=== PATIENT | female | born 1945 ===

== ENCOUNTER 2020-08-28 12:32 | Inpatient (IN) | payer OTHER ==
[~2020-08-28] VITALS: Ht 198.1 cm; Wt 5.0 kg
[2020-08-28] MEDS ORDERED: ELIQUIS5 MG PO (12:41)
[2020-08-28] MEDS ORDERED: COZAAR50 MG PO (12:41)
[2020-08-28] MEDS ORDERED: ZANAFLEX4 M1 PO (12:42)
[2020-08-28] MEDS ORDERED: GRALISE600 MG PO (12:42)
[2020-08-28] MEDS ORDERED: NORVASC5 MG PO (12:42)
[2020-08-28] MEDS ORDERED: OCREVUS300 MG/10 IV (12:43)
[2020-08-28] MEDS ORDERED: SPIRIVA RESPIMAT4 G1 (12:43)
[2020-08-28] MEDS ORDERED: NEURONTIN300 MG (12:43)
== END 2020-09-03 09:33 | disposition home health service (06) | DRG 812 ==
LOC: ER 12:32 → MEDI 20:15 → SEC-K 20:15 → MEDI 21:17 → MEDJ 08-29 14:29
PROVIDERS: ADMIT Internal Medicine; ATTEND Internal Medicine
PROC: 8E0ZXY6 Isolation (ICD-10-PCS; principal; 2020-08-29)
PROC: 30233N1 Transfusion of Nonautologous Red Blood Cells into Peripheral Vein, Percutaneous Approach (ICD-10-PCS; 2020-08-29)
DX: D64.89 Other specified anemias (principal); N17.8 Other acute kidney failure; N13.39 Other hydronephrosis; I12.9 Hypertensive chronic kidney disease with stage 1 through stage 4 chronic kidney disease, or unspecified chronic kidney disease; G35 Multiple sclerosis; N18.32 Chronic kidney disease, stage 3b; Z74.01 Bed confinement status; R33.8 Other retention of urine; Z20.822 Contact with and (suspected) exposure to COVID-19

== ENCOUNTER 2022-02-08 22:39 | Inpatient (IN) | payer OTHER ==
[~2022-02-08] VITALS: Ht 152.4 cm; Wt 77.1 kg
[~2022-02-08 22:39] MED LIST: COZAAR50 MG PO; ELIQUIS5 MG PO; GRALISE600 MG PO; NEURONTIN300 MG; NORVASC5 MG PO; OCREVUS300 MG/10 IV; SPIRIVA RESPIMAT4 G1; ZANAFLEX4 M1 PO
[2022-02-10] MEDS ORDERED: FAMOTIDINE20 MG (10:20)
== END 2022-02-13 17:57 | disposition home or self-care (01) | DRG 689 ==
LOC: ER 22:39 → MEDJ 02-09 12:55 → SURH 02-09 12:55 → SEC-K 02-09 14:15 → SURH 02-09 14:19 → MEDI 02-11 11:14
PROVIDERS: ADMIT Internal Medicine; ATTEND Internal Medicine
DX: N39.0 Urinary tract infection, site not specified (principal); A41.51 Sepsis due to Escherichia coli [E. coli]; N17.9 Acute kidney failure, unspecified; B96.29 Other Escherichia coli [E. coli] as the cause of diseases classified elsewhere; G35 Multiple sclerosis; I11.9 Hypertensive heart disease without heart failure; Z74.01 Bed confinement status; Z96.0 Presence of urogenital implants

== ENCOUNTER 2024-09-17 16:10 | Inpatient (IN) | payer OTHER ==
[~2024-09-17] VITALS: Ht 152.4 cm; Wt 108.9 kg
[~2024-09-17 16:10] MED LIST changes: +FAMOTIDINE20 MG
--- NOTE | 2024-09-17 16:21 | NUR ---
SE RECIBE PTE ALERTA Y ORIENTADA X2 EN AMBULANCIA, PTE REFIERE VENIR POR DESORIENTACION Y EPISODIOS DE DEBILIDAD DESDE HACE VARIOS V[place]SQUEZ. PTE CON H/L EN BRAZO LT [place] POR PERSONAL PARAMEDICO Y CHUA BAJANDO A GRAVEDAD. SE MIDEN S/V A PTE Y SE REALIZA EKG. PTE SE UBICA EN JAIDA.
--- NOTE | 2024-09-17 17:22 | NUR ---
SE ORIENTA A PACIENTE SOBRE TRATAMIENTO MEDICO, REFIERE ENTENDER. SE REALIZAN MUESTRAS DE LABORATORIO BAJO MEDIDAS ASEPTICAS. SE COORDINA CT. SE REALIZA EKG. PACIENTE MANEJADA POR .
[2024-09-17 18:10] LABS: HEMATOCRIT 39.1 % (36.0-45.00); HEMOGLOBIN 12.8 g/dL (12.0-15.00); MEAN CELL VOLUME 87.5 fL (80.00-100.00); MEAN CORPUSCULAR HEMOGLOBIN 28.6 pg (27.00-32.0); MEAN CORPUSCULAR HGB CONC 32.7 g/dl (32.0-36.0); PLATELET COUNT 246 K/uL (150-450); RED BLOOD COUNT 4.47 M/uL (4.00-6.00); RED CELL DISTRIBUTION WIDTH 13.9 % (11.5-14.5)
[2024-09-17 18:23] LABS: INR 1.1; PROTHROMBIN TIME 11.9 SECONDS (9.0-11.5)
[2024-09-17 18:25] LABS: ALBUMIN 3.5 gm/dL (3.4-5.0); BILIRUBIN TOTAL 0.46 mg/dL (0.3-1.2); CALCIUM 9.3 mg/dL (8.5-10.1); CREATININE SERUM 1.49 mg/dL (0.55-1.02); GFR 33.84; GLOBULINA 3.9 G/DL (2.4-3.5); POTASSIUM 3.94 mEq/L (3.5-5.1); TOTAL PROTEIN 7.4 gm/dL (6.4-8.2)
[2024-09-17 18:31] LABS: PH,URINE 6.5 (5.0-8.0); URINE APPEARANCE Turbid; URINE BILIRRUBIN Negative (NEGATIVE); URINE BLOOD Large; URINE COLOR Yellow; URINE GLUCOSE Negative (NEGATIVE); URINE KETONE Trace (NEGATIVE); URINE LEUKOCYTE Large; URINE NITRATE Positive; URINE PROTEIN Trace (NEGATIVE)
[2024-09-17 18:36] LABS: PARTIAL THROMBOPLASTIN TIME 38.3 SECONDS (22.0-34.0)
[2024-09-17 18:45] LABS: URINE CAST 2.35 uL (0.0-1.40); URINE EPITHELIAL CELLS 21.8 uL (0.0-38.8); URINE RBC 513.8 uL (0.0-20.8); URINE WBC 326.6 uL (0.0-23.2)
[2024-09-17 20:05] LABS: URINE BACTERIA > 9821.5 uL (0.0-1933)
[2024-09-17] MEDS ORDERED: levoFLOXacin IN DEXTROSE 5 % 500MG/100ML PIGGYBAG IV ONE (23:00)
[2024-09-18] VITALS (10 sets, daily range): BP systolic 117–165; BP diastolic 67–81; O2SAT 90–98
[2024-09-18] MEDS ORDERED: REMDESIVIR 100 MG VIAL IV STA (00:28)
[2024-09-18] MEDS ORDERED: 0.9 % SODIUM CHLORIDE 1,000 ML IV SCH (01:00)
[2024-09-18] MEDS ORDERED: APIXABAN 5 MG TABLET PO SCH (09:00)
[2024-09-18] MEDS ORDERED: LOSARTAN POTASSIUM 50 MG TABLET PO SCH (09:00)
[2024-09-18] MEDS ORDERED: GABAPENTIN 400 MG CAPSULE PO SCH (09:00)
[2024-09-18] MEDS ORDERED: AMLODIPINE BESYLATE 5 MG TABLET PO SCH (09:00)
[2024-09-18] MEDS ORDERED: CEFTRIAXONE SODIUM 2,000 MG in 0.9 % SODIUM CHLORIDE 100 ML IV SCH (09:00)
[2024-09-18] MEDS ORDERED: FAMOtidine 10 MG/ML (4ML VIAL) IV SCH (12:00)
[2024-09-18] MEDS ORDERED: FAMOTIDINE/PF 20 MG/2 ML VIAL IV SCH (12:00)
[2024-09-18] MEDS ORDERED: SIMVASTATIN 20 MG TABLET PO SCH (17:00)
[2024-09-19] VITALS (8 sets, daily range): BP systolic 146–158; BP diastolic 74–82; O2SAT 94–99
[2024-09-19 07:44] LABS: ALBUMIN 3.3 gm/dL (3.4-5.0); BILIRUBIN TOTAL 0.33 mg/dL (0.3-1.2); CALCIUM 8.6 mg/dL (8.5-10.1); CREATININE SERUM 1.26 mg/dL (0.55-1.02); GFR 41.07; GLOBULINA 3.4 G/DL (2.4-3.5); MAGNESIUM 1.7 mg/dL (1.8-2.4); PHOSPHOROUS 3.1 mg/dL (2.5-4.9); POTASSIUM 4.03 mEq/L (3.5-5.1); TOTAL PROTEIN 6.7 gm/dL (6.4-8.2)
[2024-09-19 07:48] LABS: C-REACTIVE PROTEIN 5.1 MG/DL (0.00-0.29); FERRITIN 497.6 NG/ML (8-252)
[2024-09-19 07:50] LABS: HEMATOCRIT 39.9 % (36.0-45.00); HEMOGLOBIN 13.6 g/dL (12.0-15.00); MEAN CORPUSCULAR HEMOGLOBIN 29.4 pg (27.00-32.0); MEAN CORPUSCULAR HGB CONC 34.1 g/dl (32.0-36.0); PLATELET COUNT 173 K/uL (150-450); RED BLOOD COUNT 4.64 M/uL (4.00-6.00); RED CELL DISTRIBUTION WIDTH 13.9 % (11.5-14.5)
[2024-09-19 08:43] LABS: ERYTHROCYTE SEDIMENTATION RATE 18 mm/hr
[2024-09-19] MEDS ORDERED: LACTOBACILLUS ACIDOPHILUS 1 CAP CAP PO SCH (09:00)
[2024-09-19] MEDS ORDERED: REMDESIVIR 100 MG VIAL IV SCH ×2 (09:00)
[2024-09-19] MEDS ORDERED: LOSARTAN POTASSIUM 50 MG TABLET PO STA (11:03)
[2024-09-19] MEDS ORDERED: MAGNESIUM SULFATE IN WATER 50 ML IV NR (12:00)
[2024-09-19 13:54] LABS: ABG PH 7.463 (7.35-7.45); ABG PO2 81.5 mmHg (80-100); ABG pCO2 31.8 mmHg (35-45); BASE EXCESS -0.5 mmol/l; BICARBONATE 22.3 mmol/l (23-25); SaO2 96.6 %; Tco2 23.2 mmol/l
[2024-09-19] MEDS ORDERED: DEXAMETHASONE SODIUM PHOSPHATE 4 MG/ML VIAL IV STA (14:12)
[2024-09-19 14:23] LABS: allen test SATISFACTORY; o2 21 %; puncture site RADIAL RIGHT
[2024-09-19] MEDS ORDERED: VITAMIN B COMPLEX/LYSINE 15 ML BLIST.PACK PO SCH (17:00)
[2024-09-20] VITALS (8 sets, daily range): BP systolic 120–130; BP diastolic 65–78; O2SAT 96–100
[2024-09-20 05:32] LABS: ALBUMIN 2.9 gm/dL (3.4-5.0); BILIRUBIN TOTAL 0.26 mg/dL (0.3-1.2); CALCIUM 8.1 mg/dL (8.5-10.1); CREATININE SERUM 1.15 mg/dL (0.55-1.02); GFR 45.63; GLOBULINA 3.2 G/DL (2.4-3.5); POTASSIUM 4.02 mEq/L (3.5-5.1); TOTAL PROTEIN 6.1 gm/dL (6.4-8.2)
[2024-09-20] MEDS ORDERED: LOSARTAN POTASSIUM 100 MG TABLET PO SCH (09:00)
[2024-09-20] MEDS ORDERED: DEXAMETHASONE SODIUM PHOSPHATE 4 MG/ML VIAL IV SCH (09:00)
[2024-09-21] VITALS (9 sets, daily range): BP systolic 142–160; BP diastolic 71–82; O2SAT 94–98
[2024-09-21] MEDS ORDERED: ONDANSETRON HCL 2 MG/ML VIAL IV PRN (02:15)
[2024-09-21 06:17] LABS: HEMATOCRIT 34.3 % (36.0-45.00); HEMOGLOBIN 11.6 g/dL (12.0-15.00); MEAN CELL VOLUME 84.8 fL (80.00-100.00); MEAN CORPUSCULAR HEMOGLOBIN 28.7 pg (27.00-32.0); MEAN CORPUSCULAR HGB CONC 33.8 g/dl (32.0-36.0); PLATELET COUNT 206 K/uL (150-450); RED BLOOD COUNT 4.04 M/uL (4.00-6.00); RED CELL DISTRIBUTION WIDTH 13.8 % (11.5-14.5)
[2024-09-21 07:09] LABS: FERRITIN 577.2 NG/ML (8-252)
[2024-09-21] MEDS ORDERED: PANTOPRAZOLE SODIUM 40 MG TABLET.DR PO NR (10:45)
[2024-09-21] MEDS ORDERED: MULTIVIT-MIN/IRON FUM/FOLIC AC 1 TAB TABLET PO NR (10:45)
[2024-09-21] MEDS ORDERED: IRON FUM,PS/FOLIC/BCOMP,C NO.9 1 CAP CAPSULE PO NR (10:45)
[2024-09-21] MEDS ORDERED: AMINO ACIDS 1 EACH TABLET PO SCH (13:00)
[2024-09-21] MEDS ORDERED: FAMOtidine 40 MG TABLET PO SCH (17:00)
[2024-09-21] MEDS ORDERED: FAMOtidine 20 MG TABLET PO STA (18:04)
[2024-09-21] MEDS ORDERED: AMLODIPINE BESYLATE 5 MG TABLET PO STA (20:50)
[2024-09-21] MEDS ORDERED: PANTOPRAZOLE SODIUM 40 MG/VIAL VIAL IV SCH (21:00)
[2024-09-22] VITALS (8 sets, daily range): BP systolic 137–151; BP diastolic 64–81; O2SAT 94–98
[2024-09-22] MEDS ORDERED: FAMOTIDINE/PF 20 MG/2 ML VIAL IV SCH (05:00)
[2024-09-22 07:27] LABS: ALBUMIN 2.9 gm/dL (3.4-5.0); BILIRUBIN TOTAL 0.26 mg/dL (0.3-1.2); CALCIUM 8.2 mg/dL (8.5-10.1); CREATININE SERUM 0.94 mg/dL (0.55-1.02); GFR 57.59; GLOBULINA 3.2 G/DL (2.4-3.5); POTASSIUM 3.75 mEq/L (3.5-5.1); TOTAL PROTEIN 6.1 gm/dL (6.4-8.2)
[2024-09-22] MEDS ORDERED: IRON FUM,PS/FOLIC/BCOMP,C NO.9 1 CAP CAPSULE PO SCH (09:00)
[2024-09-22] MEDS ORDERED: MULTIVIT-MIN/IRON FUM/FOLIC AC 1 TAB TABLET PO SCH (09:00)
[2024-09-22] MEDS ORDERED: PANTOPRAZOLE SODIUM 40 MG TABLET.DR PO SCH (09:00)
[2024-09-22] MEDS ORDERED: NIFEDIPINE 60 MG TAB.SA.OSM PO SCH (09:00)
[2024-09-23 01:18] VITALS: O2SAT 94
[2024-09-23 02:56] VITALS: BP 120/66; O2SAT 97
[2024-09-23 05:07] VITALS: O2SAT 96
[2024-09-23 09:18] VITALS: BP 124/70; O2SAT 96
[2024-09-23 09:34] VITALS: O2SAT 94
[2024-09-23 12:26] VITALS: O2SAT 94
[2024-09-23] MEDS ORDERED: NIFEDIPINE ER60 MG PO (13:44)
[2024-09-23] MEDS ORDERED: SIMVASTATIN20 MG PO (13:44)
[2024-09-23] MEDS ORDERED: INTEGRA PLUS C1 EACH PO (13:44)
[2024-09-23] MEDS ORDERED: LOSARTAN POTAS100 MG PO (13:44)
[2024-09-23] MEDS ORDERED: ELIQUIS5 MG PO (13:44)
== END 2024-09-23 13:59 | disposition home or self-care (01) | DRG 177 ==
LOC: ER 16:10 → MEDJ 09-18 00:32
PROVIDERS: General Practice; Internal Medicine; Internal Medicine Infectious Disease; ADMIT Internal Medicine; ATTEND Internal Medicine
PROC: BB24ZZZ Computerized Tomography (CT Scan) of Bilateral Lungs (ICD-10-PCS; principal; 2024-09-17)
PROC: BW28ZZZ Computerized Tomography (CT Scan) of Head (ICD-10-PCS; 2024-09-17)
PROC: 4A12X4Z Monitoring of Cardiac Electrical Activity, External Approach (ICD-10-PCS; 2024-09-18)
PROC: XW033E5 Introduction of Remdesivir Anti-infective into Peripheral Vein, Percutaneous Approach, New Technology Group 5 (ICD-10-PCS; 2024-09-19)
DX: U07.1 COVID-19 (principal); J12.82 Pneumonia due to coronavirus disease 2019; N39.0 Urinary tract infection, site not specified; N17.8 Other acute kidney failure; E87.1 Hypo-osmolality and hyponatremia; Z74.01 Bed confinement status; I10 Essential (primary) hypertension; Z88.8 Allergy status to other drugs, medicaments and biological substances; G35 Multiple sclerosis